=== PATIENT | male | born 1970 | race Caucasian/White ===

== ENCOUNTER → 2017-10-03 08:20 | Outpatient (CLI) | payer OTHER, SELFPAY ==
[2017-10-03 09:41] LABS: Hemoglobin A1C% w Est Avg Glu 6.5 % (4.0-6.0)
[2017-10-03 10:01] LABS: Creatinine Urine Random 170.7 mg/dL
[2017-10-03 10:06] LABS: Microalbumi Creatinin Ratio Ur 16.4 ug/mg CR (<30); Microalbumin Urine Random 2.8 mg/dL (0-1.6)
== END ==
PROVIDERS: PCP Family Medicine; Visit Provider Family Medicine
DX: E11.9 Type 2 diabetes mellitus without complications (principal)
CPT/HCPCS: 36415; 82043; 82570; 83036

== ENCOUNTER → 2018-02-27 09:20 | Outpatient (CLI) | payer OTHER, SELFPAY ==
[2018-02-27 10:25] LABS: Hemoglobin A1C% w Est Avg Glu 6.7 % (4.0-6.0)
[2018-02-27 10:54] LABS: Creatinine Urine Random 250.7 mg/dL
[2018-02-27 10:58] LABS: Microalbumi Creatinin Ratio Ur 37.8 ug/mg CR (<30); Microalbumin Urine Random 9.5 mg/dL (0-1.6)
== END ==
PROVIDERS: PCP Family Medicine; Visit Provider Family Medicine
DX: E11.9 Type 2 diabetes mellitus without complications (principal)
CPT/HCPCS: 36415; 82043; 82570; 83036

== ENCOUNTER → 2018-07-03 08:43 | Outpatient (CLI) | payer OTHER, SELFPAY ==
[2018-07-03 09:56] LABS: Add Manual Diff / Slide Review NO; Basophils Absolute Auto 100 /uL (0-100); Basophils Percent Auto 0.6 % (0-2); Eosinophils Absolute Auto 400 /uL (0-450); Eosinophils Percent Auto 3.8 % (2-4); Hematocrit 47.1 % (41-53); Hemoglobin 16.2 g/dL (13.5-17.5); Lymphocytes Absolute Auto 2400 /uL (1100-4500); Lymphocytes Percent Auto 25.8 % (25-40); Mean Corpuscular HGB Conc 34.4 % (30-36); Mean Corpuscular Hemoglobin 33.3 PG (26-34); Mean Corpuscular Volume 96.7 fL (80-100); Monocytes Absolute Auto 700 /uL (0-900); Monocytes Percent Auto 7.5 % (3-14); Neutrophils Absolute Auto 5900 /uL (1500-7000); Neutrophils Percent Auto 62.3 % (50-75); Platelet Count 265 X10^3/uL (150-400); Red Blood Cell Count 4.87 X10^6/uL (4.5-5.9); Red Cell Distribution Width 12.5 % (11.6-14.8); White Blood Cell Count 9.4 X10^3/uL (4.5-11.0)
[2018-07-03 10:15] LABS: Cholesterol 162 mg/dL (140-199); HDL Cholesterol 46 mg/dL (40-60); LDL Cholesterol Calculated 85 mg/dL (<100); Triglycerides 156 mg/dL (35-150)
[2018-07-03 10:18] LABS: Hemoglobin A1C% w Est Avg Glu 6.5 % (4.0-6.0)
[2018-07-03 10:44] LABS: Prostate Specific Antigen Scrn 0.559 ng/mL (0.1-4.0)
[2018-07-03 10:52] LABS: Creatinine Urine Random 135.1 mg/dL
[2018-07-03 10:56] LABS: Microalbumi Creatinin Ratio Ur 27.3 ug/mg CR (<30); Microalbumin Urine Random 3.7 mg/dL (0-1.6)
== END ==
PROVIDERS: PCP Family Medicine; Visit Provider Family Medicine
DX: Z00.00 Encounter for general adult medical examination without abnormal findings (principal); E11.9 Type 2 diabetes mellitus without complications; Z12.5 Encounter for screening for malignant neoplasm of prostate
CPT/HCPCS: 36415; 80061; 82043; 82570; 83036; 85025; G0103

== ENCOUNTER → 2018-11-06 08:55 | Outpatient (CLI) | payer OTHER, SELFPAY ==
[2018-11-06 10:17] LABS: Hemoglobin A1C% w Est Avg Glu 6.5 % (4.0-6.0)
[2018-11-06 10:20] LABS: Alanine Aminotransferase 112 IU/L (21-72); Albumin 4.7 g/dL (3.5-5.0); Albumin Globulin Ratio 1.6 (1.0-2.8); Alkaline Phosphatase 111 U/L (38-126); Aspartate Aminotransferase 43 IU/L (17-59); BUN Creatinine Ratio 15.6 (6-22); Bilirubin Total 0.8 mg/dL (0.2-1.3); Blood Urea Nitrogen 14 mg/dL (9-20); Calcium 9.7 mg/dL (8.4-10.2); Carbon Dioxide 29 mmol/L (22-32); Chloride 102 mmol/L (98-107); Estimated Glomerular Filt Rate > 60.0 mL/min (>60); Globulin 2.9 g/dL (1.7-4.1); Glucose 143 mg/dL (70-100); HEMOLYSIS 19 (0-50); Potassium 4.4 mmol/L (3.4-5.1); Sodium 141 mmol/L (137-145); Total Protein 7.6 g/dL (6.3-8.2)
== END ==
PROVIDERS: PCP Family Medicine; Visit Provider Student in an Organized Health Care Education/Training Program
DX: E11.9 Type 2 diabetes mellitus without complications (principal); R68.82 Decreased libido
CPT/HCPCS: 36415; 80053; 83036; 84403

== ENCOUNTER → 2019-05-07 12:20 | Outpatient (CLI) | payer OTHER, SELFPAY ==
--- NOTE | 2019-05-07 12:22 | DI.RAD.S_ITS ---
PROCEDURE: XR CHEST 2V INDICATIONS: Wheezing lower lobes, rule out pneumonia TECHNIQUE: 2 views of the chest were acquired. COMPARISON: None. FINDINGS: Surgical changes and devices: None. Lungs and pleura: No focal pulmonary consolidation is identified. However, interstitial prominence within the bilateral perihilar regions is present. No effusion or pneumothorax is identified. Mediastinum: Mediastinal contours are normal. Heart size is normal. Bones and chest wall: No suspicious bony abnormalities. Soft tissues appear unremarkable. IMPRESSION: 1. No consolidating pneumonia. 2. Perihilar interstitial prominence is nonspecific and may be within normal limits. However, pulmonary edema or interstitial pneumonia could also have this appearance. Dictated by: Mike Victor M.D. on 05/07/2019 at 11:35 Approved by: Mike Victor M.D. on 05/07/2019 at 11:36
== END ==
PROVIDERS: Family Provider Student in an Organized Health Care Education/Training Program; PCP Student in an Organized Health Care Education/Training Program; Visit Provider Nurse Practitioner
DX: R06.2 Wheezing (principal); R05 Cough
CPT/HCPCS: 71046

== ENCOUNTER → 2019-05-14 08:36 | Outpatient (CLI) | payer OTHER, SELFPAY ==
[2019-05-14 10:19] LABS: Hemoglobin A1C% w Est Avg Glu 7.6 % (4.0-6.0)
== END ==
PROVIDERS: Family Provider Student in an Organized Health Care Education/Training Program; PCP Student in an Organized Health Care Education/Training Program; Visit Provider Student in an Organized Health Care Education/Training Program
DX: E11.9 Type 2 diabetes mellitus without complications (principal)
CPT/HCPCS: 36415; 83036

== ENCOUNTER → 2019-08-20 08:14 | Outpatient (CLI) | payer OTHER, SELFPAY ==
[2019-08-20 09:04] LABS: Cholesterol 143 mg/dL (140-199); HDL Cholesterol 38 mg/dL (40-60); LDL Cholesterol Calculated 78 mg/dL (<100); Triglycerides 133 mg/dL (35-150)
[2019-08-20 09:06] LABS: Hemoglobin A1C% w Est Avg Glu 7.1 % (4.0-6.0)
[2019-08-20 09:17] LABS: Creatinine Urine Random 93.2 mg/dL
[2019-08-20 09:22] LABS: Microalbumi Creatinin Ratio Ur 27.8 ug/mg CR (<30); Microalbumin Urine Random 2.6 mg/dL (0-1.6)
== END ==
PROVIDERS: Family Provider Student in an Organized Health Care Education/Training Program; PCP Student in an Organized Health Care Education/Training Program; Referring Provider Student in an Organized Health Care Education/Training Program; Visit Provider Student in an Organized Health Care Education/Training Program
DX: E11.9 Type 2 diabetes mellitus without complications (principal)
CPT/HCPCS: 36415; 80061; 82043; 82570; 83036

== ENCOUNTER → 2019-12-17 07:58 | Outpatient (CLI) | payer OTHER, SELFPAY ==
[2019-12-17 09:40] LABS: Hemoglobin A1C% w Est Avg Glu 6.7 % (4.0-6.0)
== END ==
PROVIDERS: Family Provider Student in an Organized Health Care Education/Training Program; PCP Student in an Organized Health Care Education/Training Program; Referring Provider Student in an Organized Health Care Education/Training Program; Visit Provider Student in an Organized Health Care Education/Training Program
DX: E11.9 Type 2 diabetes mellitus without complications (principal)
CPT/HCPCS: 36415; 83036

== ENCOUNTER → 2020-01-21 09:08 | Outpatient (CLI) | payer OTHER, SELFPAY ==
--- NOTE | 2020-01-21 | DI.RAD.S_ITS ---
PROCEDURE: XR KNEE RT 3V INDICATIONS: RT KNEE PAIN TECHNIQUE: 3 views of the knee were acquired. COMPARISON: None. FINDINGS: Bones: No fractures or dislocations. No suspicious bony lesions. Osteophyte formation can be seen along the margins of the patella. The patellofemoral joint space and the femorotibial joint spaces appear well preserved. Soft tissues: No significant joint effusion. No suspicious soft tissue calcifications. IMPRESSION: Normal plain films for age. If it would be helpful for clinical management decision making, please consider a dedicated knee MRI for further evaluation (assuming that there is no contraindication to MRI). Dictated by: Richie Adair M.D. on 01/21/2020 at 16:59 Approved by: Richie Adair M.D. on 01/21/2020 at 17:00
== END ==
PROVIDERS: Family Provider Student in an Organized Health Care Education/Training Program; PCP Student in an Organized Health Care Education/Training Program; Referring Provider Student in an Organized Health Care Education/Training Program; Visit Provider Student in an Organized Health Care Education/Training Program
DX: M25.561 Pain in right knee (principal)
CPT/HCPCS: 73562

== ENCOUNTER → 2020-05-26 08:15 | Outpatient (CLI) | payer OTHER, SELFPAY ==
[2020-05-26 09:06] LABS: BUN Creatinine Ratio 15.4 (6-22); Blood Urea Nitrogen 12 mg/dL (9-20); Calcium 9.8 mg/dL (8.4-10.2); Carbon Dioxide 32 mmol/L (22-32); Chloride 101 mmol/L (98-107); Estimated Glomerular Filt Rate > 60.0 mL/min (>60); Glucose 152 mg/dL (70-100); HEMOLYSIS < 15 (0-50); Potassium 4.2 mmol/L (3.4-5.1); Sodium 137 mmol/L (137-145)
[2020-05-26 09:08] LABS: Hemoglobin A1C% w Est Avg Glu 6.5 % (4.0-6.0)
== END ==
PROVIDERS: Family Provider Student in an Organized Health Care Education/Training Program; PCP Student in an Organized Health Care Education/Training Program; Referring Provider Student in an Organized Health Care Education/Training Program; Visit Provider Student in an Organized Health Care Education/Training Program
DX: E11.9 Type 2 diabetes mellitus without complications (principal)
CPT/HCPCS: 36415; 80048; 83036

== ENCOUNTER → 2020-09-15 08:31 | Outpatient (CLI) | payer OTHER, SELFPAY ==
[2020-09-15 09:30] LABS: Hemoglobin A1C% w Est Avg Glu 6.4 % (4.0-6.0)
[2020-09-15 11:57] LABS: Creatinine Urine Random 93.2 mg/dL
[2020-09-15 12:01] LABS: Microalbumi Creatinin Ratio Ur 21.4 ug/mg CR (<30)
[2020-09-16 09:23] LABS: Cholesterol 133 mg/dL (140-199); HDL Cholesterol 43 mg/dL (40-60); LDL Cholesterol Calculated 72 mg/dL (<100); Triglycerides 91 mg/dL (35-150)
== END ==
PROVIDERS: Family Provider Student in an Organized Health Care Education/Training Program; PCP Student in an Organized Health Care Education/Training Program; Referring Provider Student in an Organized Health Care Education/Training Program; Visit Provider Student in an Organized Health Care Education/Training Program
DX: E11.9 Type 2 diabetes mellitus without complications (principal); E78.5 Hyperlipidemia, unspecified
CPT/HCPCS: 36415; 80061; 82043; 82570; 83036

== ENCOUNTER → 2020-12-08 08:05 | Outpatient (CLI) | payer OTHER, SELFPAY ==
[2020-12-08 09:09] LABS: Add Manual Diff / Slide Review NO; Basophils Absolute Auto 0 /uL (0-100); Basophils Percent Auto 0.3 % (0-2); Eosinophils Absolute Auto 200 /uL (0-450); Eosinophils Percent Auto 1.4 % (2-4); Hematocrit 45.4 % (41-53); Hemoglobin 15.6 g/dL (13.5-17.5); Lymphocytes Absolute Auto 1700 /uL (1100-4500); Lymphocytes Percent Auto 14.2 % (25-40); Mean Corpuscular HGB Conc 34.4 % (30-36); Mean Corpuscular Hemoglobin 33.9 PG (26-34); Mean Corpuscular Volume 98.4 fL (80-100); Monocytes Absolute Auto 900 /uL (0-900); Monocytes Percent Auto 7.6 % (3-14); Neutrophils Absolute Auto 9000 /uL (1500-7000); Neutrophils Percent Auto 76.5 % (50-75); Platelet Count 254 X10^3/uL (150-400); Red Blood Cell Count 4.61 X10^6/uL (4.5-5.9); White Blood Cell Count 11.8 X10^3/uL (4.5-11.0)
[2020-12-08 09:37] LABS: Alanine Aminotransferase 114 IU/L (<50); Albumin 4.4 g/dL (3.5-5.0); Albumin Globulin Ratio 1.5 (1.0-2.8); Alkaline Phosphatase 107 U/L (38-126); Aspartate Aminotransferase 64 IU/L (17-59); Bilirubin Total 0.6 mg/dL (0.2-1.3); Blood Urea Nitrogen 10 mg/dL (9-20); Calcium 9.9 mg/dL (8.4-10.2); Carbon Dioxide 29 mmol/L (22-32); Chloride 102 mmol/L (98-107); Estimated Glomerular Filt Rate > 60.0 mL/min (>60); Glucose 137 mg/dL (70-100); HEMOLYSIS < 15 (0-50); Potassium 3.9 mmol/L (3.4-5.1); Sodium 138 mmol/L (137-145); Total Protein 7.4 g/dL (6.3-8.2)
[2020-12-08 10:07] LABS: Prostate Specific Antigen Scrn 0.648 ng/mL (0.1-4.0); Thyroid Stimulating Hormone 0.971 uIU/mL (0.47-4.68)
== END ==
PROVIDERS: Family Provider Student in an Organized Health Care Education/Training Program; PCP Student in an Organized Health Care Education/Training Program; Referring Provider Student in an Organized Health Care Education/Training Program; Visit Provider Student in an Organized Health Care Education/Training Program
DX: E11.9 Type 2 diabetes mellitus without complications (principal)
CPT/HCPCS: 36415; 80053; 83036; 84443; 85025; G0103

== ENCOUNTER → 2020-12-31 10:29 | Outpatient (CLI) | payer OTHER, SELFPAY ==
[2020-12-31 12:47] LABS: COVID19 -Nasal RAPID Negative (Negative)
== END ==
PROVIDERS: Family Provider Student in an Organized Health Care Education/Training Program; PCP Student in an Organized Health Care Education/Training Program; Visit Provider Nurse Practitioner Family
DX: Z01.812 Encounter for preprocedural laboratory examination (principal); Z20.822 Contact with and (suspected) exposure to COVID-19
CPT/HCPCS: 87635

== ENCOUNTER → 2021-01-01 09:10 | Outpatient (CLI) | payer OTHER, SELFPAY ==
--- NOTE | 2021-01-01 | DI.ECHO.S_ITS ---
Version: 1 Study ID: [id number] [place] [address] Name: GILL PAVON Study Date: 01/01/2021, 9: 24 AM : 1970 BP: 142 / 98 mmHg Gender: Male Height: 70 in Age: 50 Years Weight: 240 lb BSA: 2.26 mA? Ordering: JESSENIA HERNANDEZ Referring: JESSENIA HERNANDEZ Clinician: Cally Talbot Reason For Study: HYPERTENSION History: Summary Statements Normal sinus rhythm. Normal LV size and wall thickness; mildly reduced LV systolic function. EF is 40-45%. Normal chamber sizes. No significant valvular abnormalities. No prior study available for comparison. Procedure: A two-dimensional transthoracic echocardiogram with color flow and Doppler was performed. The study quality was technically adequate. There is no prior echocardiogram noted for this patient. The patient was in sinus rhythm with heart rates between 92-110 bpm during the exam. Left Ventricle: The left ventricle is normal in size and wall thickness. The estimated left ventricular end diastolic volume is 111 ml. The ejection fraction is estimated to be 40-45%. Right Ventricle: The right ventricle is normal in size and function. Atria: The left atrial size is normal. Right atrial size is normal. There is no Doppler evidence for an interatrial shunt. Mitral Valve: The mitral valve is normal in structure and function. There is trace mitral regurgitation. Aortic Valve: The aortic valve is trileaflet. The aortic valve opens well. There is no aortic valve stenosis. No aortic regurgitation is present. Tricuspid Valve: The tricuspid valve is normal in structure and function. There is trace tricuspid regurgitation. Pulmonary artery pressures cannot be estimated because of the lack of a measurable TR jet velocity but the IVC suggests a CVP of around 3 mmHg. Pulmonic Valve: The pulmonic valve leaflets are thin and pliable; valve motion is normal. There is no pulmonic valvular regurgitation. Great Vessels: The aortic root is normal size. The dimensions of the ascending aorta are normal. The IVC is of normal diameter and collapses greater than 50% with a sniff. This suggests a low right atrial pressure of 3 mm Hg. Pericardium/ Pleura: There is no pericardial effusion. There is no pleural effusion. 2D and M-Mode Measurements and Calculations LVIDd: 5.5 cm LVOT diam: 2.19 cm LVIDs: 4.4 cm Ao root diam: 3.6 cm IVSd: 1.02 cm asc Aorta Diam: 2.9 cm LVPWd: 0.76 cm Ao Arch Diam (Prox Trans): 2.9 cm LV servin. diameter/BSA (cm/m^2): 2.44 LV sys. diameter/BSA (cm/m^2): 1.97 EPSS: 1.77 cm RVD1 (basal): 3.3 cm IVC diam: 0.81 cm TAPSE: 1.82 cm LA A4 area: 20.8 welder gas? RA area: 14.0 welder gas? LA A2 area: 16.9 welder gas? RA long axis: 4.9 cm LA length (vol): 5.7 cm RA vol: 34.4 ml LA vol: 52.4 ml RA : 15.2 ml/mA? LA vol index: 23.3 ml/mA? Doppler Measurements and Calculations Ao V2 max: 125.6 cm/sec LVOT Max Franklin: 78.9 cm/sec Ao V2 mean: 86.1 cm/sec LV V1 max P.49 mmHg Ao V2 VTI: 20.5 cm LV V1 VTI: 13.1 cm Ao max P.3 mmHg Ao mean P.5 mmHg ANASTASIA(I,D): 2.42 welder gas? ANASTASIA(V,D): 2.37 welder gas? ANASTASIA indexed to BSA (cm^2/m^2): 1.07 sev ratio: 0.64 MV E max franklin: 73.2 cm/sec MV dec time: 0.18 sec MV A max franklin: 86.4 cm/sec MV E/A: 0.85 Med Peak E' Franklin: 6.3 cm/sec Lat Peak E' Franklin: 9.2 cm/sec E/e' average: 9.8 PA V2 max: 97.3 cm/sec PA mean P.08 mmHg Electronically signed by: Jeanne Godwin M.D. 01/02/2021, 1: 31 AM
--- NOTE | 2021-01-01 15:35 | DI.NM.S_ITS ---
PROCEDURE: NM EXERCISE TREADMILL NON NUC COMPARISON: None. INDICATIONS: PRIMARY HYPERTENSION FINDINGS: Resting ECG sinus rhythm, nonspecific IVCD, inferior and lateral horizontal to downsloping ST abnormalities. Patrice protocol 7 minutes, 2 seconds, 10.1 METS, JUJU +29%. Achieved 98% peak predicted heart rate. Baseline hypertension 150/100. Max BP 182/90. Duran Treadmill Score -3. Stress ECG sinus tachycardia, occasional PVCs, worsening of the baseline inferior and lateral downsloping ST abnormality. IMPRESSION: 1. Overall equivocal test. 2. Abnormal resting ECG, exacerbated by exercise. 3. Intermediate risk according to Duran Treadmill Score. 4. Baseline hypertension. 5. If clinically indicated, consider repeat stress testing combined with imaging modality, recommend echocardiography in this age group. Dictated by: Gabriela Singletary D.O. on 01/02/2021 at 17:11 Approved by: Gabriela Singletayr M.D. on 01/02/2021 at 17:25
== END ==
PROVIDERS: Family Provider Student in an Organized Health Care Education/Training Program; PCP Student in an Organized Health Care Education/Training Program; Referring Provider Student in an Organized Health Care Education/Training Program; Visit Provider Student in an Organized Health Care Education/Training Program
DX: R94.31 Abnormal electrocardiogram [ECG] [EKG] (principal); I10 Essential (primary) hypertension; R00.0 Tachycardia, unspecified
CPT/HCPCS: 93017; 93306

== ENCOUNTER → 2021-02-02 10:16 | Outpatient (CLI) | payer OTHER, SELFPAY ==
[2021-02-02 10:59] LABS: Add Manual Diff / Slide Review NO; Basophils Absolute Auto 0 /uL (0-100); Basophils Percent Auto 0.5 % (0-2); Eosinophils Absolute Auto 200 /uL (0-450); Eosinophils Percent Auto 1.6 % (2-4); Hematocrit 46.5 % (41-53); Hemoglobin 16.3 g/dL (13.5-17.5); Lymphocytes Absolute Auto 2000 /uL (1100-4500); Lymphocytes Percent Auto 19.9 % (25-40); Mean Corpuscular HGB Conc 35.1 % (30-36); Mean Corpuscular Hemoglobin 33.9 PG (26-34); Mean Corpuscular Volume 96.7 fL (80-100); Monocytes Absolute Auto 1000 /uL (0-900); Monocytes Percent Auto 9.6 % (3-14); Neutrophils Absolute Auto 7000 /uL (1500-7000); Neutrophils Percent Auto 68.4 % (50-75); Platelet Count 257 X10^3/uL (150-400); Red Blood Cell Count 4.81 X10^6/uL (4.5-5.9); White Blood Cell Count 10.3 X10^3/uL (4.5-11.0)
[2021-02-02 11:17] LABS: Cholesterol 156 mg/dL (140-199); HDL Cholesterol 48 mg/dL (40-60); LDL Cholesterol Calculated 88 mg/dL (<100); Triglycerides 98 mg/dL (35-150)
[2021-02-02 11:48] LABS: Thyroid Stimulating Hormone 0.791 uIU/mL (0.47-4.68)
[2021-02-03 07:01] LABS: BUN Creatinine Ratio 11.8 (6-22); Blood Urea Nitrogen 10 mg/dL (9-20); Calcium 10.1 mg/dL (8.4-10.2); Carbon Dioxide 32 mmol/L (22-32); Chloride 98 mmol/L (98-107); Estimated Glomerular Filt Rate > 60.0 mL/min (>60); Glucose 136 mg/dL (70-100); HEMOLYSIS 15 (0-50); Sodium 139 mmol/L (137-145)
== END ==
PROVIDERS: Family Provider Student in an Organized Health Care Education/Training Program; PCP Student in an Organized Health Care Education/Training Program; Referring Provider Internal Medicine; Visit Provider Internal Medicine
DX: R00.0 Tachycardia, unspecified (principal)
CPT/HCPCS: 36415; 80048; 80061; 84443; 85025

== ENCOUNTER → 2021-02-27 14:55 | Outpatient (CLI) | payer OTHER, SELFPAY ==
[2021-02-27 16:35] LABS: COVID19 -Nasal RAPID Negative (Negative)
== END ==
PROVIDERS: Family Provider Student in an Organized Health Care Education/Training Program; PCP Student in an Organized Health Care Education/Training Program; Visit Provider Nurse Practitioner Family
DX: Z20.822 Contact with and (suspected) exposure to COVID-19 (principal)
CPT/HCPCS: 87635

== ENCOUNTER 2021-03-01 13:24 | Day surgery (SDC) | payer OTHER, SELFPAY ==
--- NOTE | 2021-03-01 12:26 | PM.HP.1 ---
History of Present Illness History of Present Illness Date Patient Seen: 03/01/21 Chief complaint: SCREENING COLONOSCOPY Narrative: 50 year old male comes in today for consideration of a screening colonoscopy. There have been no lower GI symptoms suggesting disease such as change in bowel habits, bleeding, abdominal pain or anemia. There's been no family history of colon cancer or colon polyps. Overall health issues have been stable, including no major cardiac events for at least 6 weeks. PCP: Dr. Way Past Medical History: Decreased sex drive FATIGUE PAIN, FOOT, RIGHT HYPERLIPIDEMIA HYPERTENSION DM, TYPE 2 DEGENERATIVE JOINT DISEASE Allergy to seafood OBESITY Past Surgical History: Tonsillectomy 1974 Hand reconstruction, right 1987 Rt rotator cuff repair 03/2021 Family History: Family Hx Diabetes mom Hypertension mom, Thyroid Disease mom Social History: Marital Status: Adriane, 12/14/68 Children: none Occupation: instructional technology director Household Members: 2 Patient History Family & Social History Tobacco & Substance use: Smoking Status Former smoker Meds Home Medications and Allergies Home Medications Medication Instructions Recorded Confirmed Type albuterol sulfate 90 mcg/actuation 2 puff INHALATION Q4-6H PRN #8 gram 05/07/19 05/07/19 Rx aerosol inhaler azithromycin 250 mg tablet See Rx Instructions PO .COMPLEX #6 05/07/19 05/07/19 Rx tab Allergies Allergy/AdvReac Type Severity Reaction Status Date / Time No Known Drug Allergies Allergy Verified 05/07/19 10:49 Review of Systems Review of Systems Narrative: All remaining ROS were reviewed and negative except as addressed. Exam Narrative Exam Narrative: GENERAL: Alert and oriented, appearing stated age and in no acute distress. HEENT: Head normocephalic/atraumatic. Extraocular movements intact. LUNGS: Clear to ausculation bilaterally, no wheezes, rhonchi or rales. CV: Normal S1 and S2 with regular rate and rhythm, no audible murmurs, rubs or gallops. ABDOMEN: Soft, non-tender, non-distended, no organomegaly. Positive bowel sounds. EXTREMITIES: No clubbing, cyanosis, or edema. NEURO: Cranial nerves II through XII grossly intact, no focal deficits. PSYCH: Alert and oriented x 3. SKIN: No concerning lesions. Assessment & Plan Assessment & Plan narrative: 1. Screening for colon cancer Plan for colonoscopy. The nature and character of the procedure as well as anticipated results were discussed. The possibility of not completing the procedure was also discussed. Possible complications including aspiration pneumonia, bleeding, perforation and reaction to medications either for sedation or preparation and missed lesions were discussed. Questions were answered and proceeding to the colonoscopy was elected. Informed consent signed. I sincerely appreciate the referral allowing me to participate in this patient's care. Please contact me with any questions or concerns.
--- NOTE | 2021-03-01 12:29 | PM.OP.COLON ---
Operative Date/Time/Diagnoses Date of procedure: 03/01/21 Procedure Notes SCOAP/Timeout: 2:32 p.m. Procedure in detail: ENDOSCOPIST: Winifred Way MD Sedation RN: Shania Yepez RN Sedation start time: 2:32 p.m. Sedation end time: 2:55 p.m. PROCEDURE: Colonoscopy INDICATIONS: 1. Screening for colon cancer MEDICATION: Levsin 0.125 mg sublingual, incremental doses of Versed and fentanyl until appropriate level sedation achieved. ASA CLASS: 2 CECAL WITHDRAWAL TIME: 14 minutes COMPLICATIONS: None. EXTENT OF PROCEDURE: Cecum. QUALITY OF PREP: Good with portions of liquid stool. PROCEDURE: Prior to insertion of the colonoscope, a digital rectal examination was accomplished with circumferential palpation of the distal rectal mucosa without significant findings being noted. The high-definition colonoscope was passed into the rectum in the usual fashion and advanced over to the cecum without difficulty. The ileocecal valve, appendiceal stoma, and medial wall all could be inspected and no abnormalities were seen. ASCENDING COLON: As the colonoscope was withdrawn, care was taken to expose and inspect the haustral folds and no abnormalities were seen. HEPATIC FLEXURE: Normal, no polyps, diverticula or other abnormalities. TRANSVERSE COLON: Normal, no polyps, diverticula or other abnormalities. DESCENDING COLON: Normal, no polyps, diverticula or other abnormalities. SIGMOID COLON: Normal, no polyps, diverticula or other abnormalities. RECTUM: Dilated veins, otherwise normal. J maneuver was produced. There was no significant perianal disease. The J maneuver was broken. The remainder of the rectum was inspected and there was no external hemorrhoid disease. The scope was withdrawn. IMPRESSION: 1. Normal colonoscopy PLAN: 1. Repeat colonoscopy in 10 years. The possibility of a missed lesion including a malignancy has been discussed with the patient previously. Potential alarm symptoms have been discussed and should be reported immediately.
[2021-03-01] MEDS: HYOSCYAMINE 0.125 MG TABLET PO (13:39)
[2021-03-01 13:45] VITALS: BP 142/85; PULSE 118; RESP 18; TEMP 37.2; O2SAT 98; BMI 35.4
[2021-03-01] MEDS: LACTATED RINGERS 1,000 ML 200 ML IV (13:52)
[2021-03-01] MEDS: MIDAZOLAM 5 MG/5 ML VIAL IV (14:57)
[2021-03-01] MEDS: fentaNYL 250 MCG/5 ML INJ IV (14:58)
[2021-03-01 15:00] VITALS: BP 105/74; PULSE 94; RESP 14; TEMP 36.8; O2SAT 93
[2021-03-01 15:05] VITALS: BP 125/71; PULSE 99; RESP 16; O2SAT 95
[2021-03-01 15:10] VITALS: BP 135/77; PULSE 90; RESP 20; O2SAT 97
[2021-03-01 15:15] VITALS: BP 134/87; PULSE 100; RESP 14; O2SAT 97
[2021-03-01 15:20] VITALS: BP 118/76; PULSE 98; RESP 18; TEMP 37; O2SAT 98
--- OUTSIDE RECORDS SUMMARY | 2021-07-12 07:41 | XMS_ITS | Summary of Care ---
:1970 Author Organization [facility] Address [address] [place] [address] Care Team Providers Name Role Phone Paty Way MD Primary Care Provider Reason for Referral Hospital - Outpatient (Routine) - Authorized Specialty Diagnoses / Procedures Referred By Contact Refer red To Contact Diagnoses Coronary artery disease due to lipid rich plaque Cardiomyopathy, ischemic Avinash Cobb MD [address] [place] [address] [place], [place] [address] Referral ID Status Reason Start Date Expiration Date Visits V isits Requested Authorized [id number] Authorized 07/09/2021 07/09/2022 25 25 [facility] Reason for Visit Auth/Cert Specialty Diagnoses / Procedures Referred By Contact Refer red To Contact Diagnoses Chest pain due to coronary artery disease ([facility]) Procedures OUTPATIENT IN A BED Referral ID Status Reason Start Date Expiration Date Visits Requ ested Visits Authorized [id number] 1 1 Encounter Details Date Type Department Care Team Description 04/24/2021 - [facility] [address] [place] [address] [address] [place], [place] [id number] Cardiomyopathy, ischemic (Primary Dx); 04/25/2021 Hospital Progressive Avinash Cobb MD [facility] [address] [address] [place], [place] [id number] Coronary artery disease due to lipid noa h plaque and Critical Care [facility] [address] [facility] [place] [address] Allergies Active Allergy Reactions Severity Noted Date Comments Bee Venom Protein (Honey Bee) Anaphylaxis High 01/23/2021 Shellfish Derived Anaphylaxis High 01/23/2021 documented as of this encounter (statuses as of 07/11/2021) Medications Medication Sig Dispensed Refills Start Date End Date Status amLODIPine Take 5 mg by 0 12/15/2020 Activ e (NORVASC) 5 mg mouth daily tablet gabapentin Take 2 0 11/30/2020 Active (NEURONTIN) 300 mg capsules (600 capsule mg) by mouth every morning AND 2 capsules (600 mg) at bedtime. Can increase to three times daily if needed losartan-hydrochlo Take 1 tablet 0 11/05/2020 Active rothiazide by mouth daily (HYZAAR) 100-25 mg per tablet metFORMIN XR Take 1,000 mg 0 11/05/2020 Ac tive (GLUCOPHAGE-XR) by mouth 2 500 mg 24 hr (two) times a tablet day aspirin 81 mg EC Take 81 mg by 0 Active tablet mouth daily atorvastatin Take 4 tablets 120 tablet 11 02/11/2021 05/29/2021 Discontinued (LIPITOR) 20 mg (80 mg total) tablet by mouth daily clopidogreL Take 1 tablet 90 tablet 0 02/12/2021 05/08/2021 Di scontinued (PLAVIX) 75 mg (75 mg total) tablet by mouth daily metoprolol Take 0.5 180 tablet 3 02/19/2021 05/29/2021 Discon tinued tartrate tablets (12.5 (LOPRESSOR) 25 mg mg total) by tablet mouth 2 (two) times a day documented as of this encounter (statuses as of 07/11/2021) Active Problems Problem Noted Date Coronary artery disease due to lipid rich plaque 02/19 Cardiomyopathy, ischemic 02/19/2021 Hyperlipidemia Hypertension S/P angioplasty with stent Overview: MORGAN x1 to LAD on 04/24/2021 documented as of this encounter (statuses as of 07/11/2021) Social History Tobacco Use Types Packs/Day Years Used Date Former Smoker 0.5 1989 - 1998 Smokeless Tobacco: Never Used Alcohol Use Standard Drinks/Week Comments Yes 2 (1 standard drink = 0.6 oz pure alcoho l) 1-2 beers a day Alcohol Habits Answer Date Recorded How often do you have a drink containing alcohol? Not asked How many drinks containing alcohol do you have on a Not aske d typical day when you are drinking? How often do you have six or more drinks on one Not asked occasion? Comment: 1-2 beers a day 02/11/2021 Sex Assigned at Date Recorded Not on file Job Start Date Occupation Industry Not on file Not on file Not on file COVID-19 Exposure Response Date Recorded In the last month, have you been in contact with No / Unsure 04/24/2021 4:18 PM PST someone who was confirmed or suspected to have Coronavirus / COVID-19? documented as of this encounter Last Filed Vital Signs Vital Sign Reading Time Taken Comments Blood Pressure 145/91 04/25/2021 8:43 AM PST Pulse 80 04/25/2021 8:43 AM PST Temperature 36.9 ??C (98.4 ??F) 04/25/2021 8:43 AM PST Respiratory Rate 18 04/25/2021 8:43 AM PST Oxygen Saturation 96% 04/25/2021 8:43 AM PST Inhaled Oxygen Concentration - - Weight 109 kg (240 lb) 04/24/2021 3:54 PM PST Height 152.4 cm (5') 04/24/2021 3:54 PM PST Body Mass Index 46.87 04/24/2021 3:54 PM PST documented in this encounter Discharge Summaries JENNIFER Almaraz - 04/25/2021 8:54 AM PST Cardiology Discharge Summary BRIEF OVERVIEW Pt. Name/Age/: Jonathan Huddleston 50 y.o. 1970 Date of Admission: 04/24/2021 Date of Discharge: 04/25/2021 PCP: Winifred Way Discharging Provider: JENNIFER Almaraz Primary Discharge Diagnosis CAD s/p MORGAN x1 to LAD, with unsuccessful recanalization of the RCA ASSISTANT UNIT FORESTER. Secondary Discharge Diagnosis Active Ambulatory Problems Diagnosis Date Noted ??? Coronary artery disease due to lipid rich plaque 02/19/2021 ??? Cardiomyopathy, ischemic 02/19/2021 Resolved Ambulatory Problems Diagnosis Date Noted ??? No Resolved Ambulatory Problems Past Medical History: Diagnosis Date ??? Coronary artery disease ??? Diabetes mellitus ([facility]) ??? Hyperlipidemia ??? Hypertension Active Issues Requiring Follow-up None Outpatient Follow-Up Follow up with PCP in 1 week Follow up with cardiology in 3-4 weeks. Test Results Pending at Discharge None DETAILS OF HOSPITAL STAY Presenting Problem/History of Present Illness Jonathan Huddleston is a 50 y.o. male with a PMH of CAD, hypertension, hyperlipidemia, type 2 diabetes. He is hospital day 1 s/p PCI with MORGAN x1 to LAD, and unsuccessful recanalization of RCA ASSISTANT UNIT FORESTER. Hospital Course Mr Huddleston was admitted through the [facility] on 04/24/2021 and taken to the/ [facility] where the patient underwent PCI including MORGAN of the LAD, and unsuccessful recanalization of RCA ASSISTANT UNIT FORESTER. Post-procedure the patient was recovered in [facility] then transferred to PCU for overnight observation and telemetry m onitoring. He did well overnight and this morning is clinically stable and ambulatory w/o difficulty. Today he is sitting in bed, comfortable . He is able to ambulate without chest discomfort or pronounced dyspnea on exertion. He denies CP, palpitations, pre- syncope/syncope, orthopnea/PND, N/V/D. Overnight Telemetry: Sinus rhythm, rate 70-80s. No events or alarms Operative Procedures Performed SI Left heart Catheterization Treatments: cardiac meds: DAPT with Plavix and ASA Consults: None Pertinent Test Results: ANGIOGRAPHIC FINDINGS per Dr. Cobb Unsuccessful recanalization of the RCA ASSISTANT UNIT FORESTER. Successful stenting of the LAD. Recommend dual antiplatelet therapy for 6 months post procedure. EKG Sinus rhythm, rate 75bpm, IVCD Lab Results Component Value Date GLUCOSE 178 (H) 04/24/2021 CALCIUM 9.2 04/24/2021 NA 136 04/24/2021 K 3.5 04/24/2021 CO2 25 04/24/2021 CL 99 04/24/2021 BUN 18.0 04/24/2021 CREATININE 0.76 04/24/2021 Lab Results Component Value Date WBC 9.2 04/24/2021 HGB 15.5 04/24/2021 HCT 44.1 04/24/2021 MCV 96 04/24/2021 PLT 230 04/24/2021 @LASTLABX(A1C:2,ldl:2)@ No results found for: CKTOTAL, CKMB, CKMBINDEX, TROPONIN No results found for: BNP Medications Reconciled upon Discharge are: Medication List CONTINUE taking these medications amLODIPine 5 mg tablet Commonly known as: NORVASC aspirin 81 mg EC tablet atorvastatin 20 mg tablet Commonly known as: LIPITOR Take 4 tablets (80 mg total) by mouth daily clopidogreL 75 mg tablet Commonly known as: PLAVIX Take 1 tablet (75 mg total) by mouth daily gabapentin 300 mg capsule Commonly known as: NEURONTIN losartan-hydrochlorothiazide 100-25 mg per tablet Commonly known as: HYZAAR metFORMIN XR 500 mg 24 hr tablet Commonly known as: GLUCOPHAGE-XR metoprolol tartrate 25 mg tablet Commonly known as: LOPRESSOR Take 0.5 tablets (12.5 mg total) by mouth 2 (two) times a day Allergies: Allergies Allergen Reactions ??? Bee Venom Protein (Honey Bee) Anaphylaxis ??? Shellfish Derived Anaphylaxis Physical Exam at Discharge Discharge Condition: Stable Wt Readings from Last 1 Encounters: 04/24/21 109 kg Temp Readings from Last 1 Encounters: 04/25/21 36.9 ??C (98.4 ??F) (Oral) BP Readings from Last 1 Encounters: 04/25/21 (!) 145/91 Pulse Readings from Last 1 Encounters: 04/25/21 80 Resp Readings from Last 1 Encounters: 04/25/21 18 Patient is well-appearing, NAD, speaking in full sentences, observed by RN ambulating without difficulty or work of breath. Heart is RRR, no murmur, rubs or gallops. Lungs CTA. Right and left femoral access sites are closed, clean and dry. There is mild drainage on the right femoral gauze dressing. The patient requested to leave the right femoral dressing intact at this time. There is no active bleeding or drainage noted at the time of this exam. The surrounding area is warm, soft to the touch, and nontender to palpation. There is minimal bruising. No s/sx of infection. No bruit on auscultation. Peripheral pulses intact. The patient is hemodynamically stable. Discharge Disposition Home The patient was discharged home in good condition with follow-up appointment at the cardiology office in 3-4 weeks. He was instructed not to lift, push, or pull more than 10 pounds for 7 days. Patient was also instructed not to sit or soak in pool, hot tub, or bathtub, for 7 days. He is to continue taking Plavix and ASA daily. We discussed DAPT and it was explained that he needs to remain on Plavix and ASA to prevent stent occlusion. Patient is agreeable to cardiac rehab with referral to be placed at cardiology follow up appointment. He was instructed to follow a heart healthy diet, and take medications as prescribed. He was advised to contact us if he experiences any chest pain, worsening SOB, or if he has any concerns about the surgical access site. Code Status at Discharge: Full ELECTRONICALLY SIGNED by Janelle Andres DNP, ARNP 04/25/2021 11:33 AM documented in this encounter Discharge Instructions AppointmentsKimberley Irizarry CNA - 04/25/2021 11:01 AM PST Appointment with Dr Kenny Way ph#[phone] on May 02 at 0945 am Additional InstructionsGavi Andersen RN - 04/24/2021 Rest today, do not drink alcohol, take sedatives to help with sleep or make important decisions for 24hrs.GROIN CARE: Rest today, DO NOT DRIVE, no alcohol and do not make important decisions for the next 24 hours. Avoid pushing, pulling or lifting more than 10 pounds for the next 5-7 days. No vigorous activity for (48hours) 2 days. Limit use of stairs for 48 hours. If bleeding develops, hold pressure for 15 minutes with a clean cloth or gauze. After 15 minutes orif you are unable to control the bleeding, saturating bandage, call 911. You may shower tomorrow. Dressing may be removed then gently wash site with soap and water, pat dry with a clean towel. Replace with bandaid until well healed. Do not put creams, lotions or powders on site. Do not soak or swim (hot tubs, pools, bathtub) until site is completely healed, about 1 week. AttachmentsThe following attachments cannot be sent through Care Everywhere. Heart Catheterization (Discharge Care) (Armenian)documented in this encounter H&P Notes Avinash Cobb MD - 04/24/2021 10:00 AM PST Images from the original note were not included. Preprocedure History and Physical Indication for procedure: The encounter diagnosis was Coronary artery disease due to lipid rich plaque. Relevant past medical/surgical history: Past Surgical History: Procedure Laterality Date ??? CORONARY ANGIOPLASTY 2020 ??? FINGER SURGERY Right 1986 pinky ??? SHOULDER SURGERY Right ??? TONSILLECTOMY AND ADENOIDECTOMY 1973 . Past Medical History: Diagnosis Date ??? Coronary artery disease ??? Diabetes mellitus ([facility]) ??? Hyperlipidemia ??? Hypertension Current medications: Current Outpatient Medications: ??? aspirin 81 mg EC tablet, Take 81 mg by mouth daily, Disp: , Rfl: ??? amLODIPine (NORVASC) 5 mg tablet, Take 5 mg by mouth daily, Disp: , Rfl: ??? atorvastatin (LIPITOR) 20 mg tablet, Take 4 tablets (80 mg total) by mouth daily, Disp: 120 tablet, Rfl: 11 ??? clopidogreL (PLAVIX) 75 mg tablet, Take 1 tablet (75 mg total) by mouth daily, Disp: 90 tablet,Rfl: 0 ??? gabapentin (NEURONTIN) 300 mg capsule, Take 2 capsules (600 mg) by mouth every morning AND 2 capsules (600 mg) at bedtime. Can increase to three times daily if needed, Disp: , Rfl: ??? losartan-hydrochlorothiazide (HYZAAR) 100-25 mg per tablet, Take 1 tablet by mouth daily, Disp:, Rfl: ??? metFORMIN XR (GLUCOPHAGE-XR) 500 mg 24 hr tablet, Take 1,000 mg by mouth 2 (two) times a day, Disp: , Rfl: ??? metoprolol tartrate (LOPRESSOR) 25 mg tablet, Take 0.5 tablets (12.5 mg total) by mouth 2 (two)times a day, Disp: 180 tablet, Rfl: 3 Current Facility-Administered Medications: ??? fentaNYL (SUBLIMAZE) 50 mcg/mL injection - ADS Override Pull, , , , ??? heparin (porcine) 1,000 unit/mL injection - ADS Override Pull, , , , ??? midazolam (VERSED) 1 mg/mL injection - ADS Override Pull, , , , ??? amiodarone (CORDARONE) 50 mg/mL injection - ADS Override Pull, , , , ??? atropine 0.1 mg/mL injection (abboject) - ADS Override Pull, , , , ??? dextrose (D5W) 5 % infusion - ADS Override Pull, , , , ??? EPINEPHrine (ADRENALIN) 0.1 mg/mL injection (abboject) - ADS Override Pull, , , , ??? fentaNYL (SUBLIMAZE) injection, , intravenous, Code/trauma/sedation med, Avinash Cobb MD, 25 mcg at 04/24/21 1214 ??? heparin (porcine) injection, , intravenous, Code/trauma/sedation med, Avinash Cobb MD, 1,000 Units at 04/24/21 1152 ??? midazolam (VERSED) 1 mg/mL injection - ADS Override Pull, , , , ??? midazolam (VERSED) injection, , intravenous, Code/trauma/sedation med, Avinash Cobb MD, 0.5mg at 04/24/21 1214 ??? nitroglycerin 100 mcg/mL injection, , , Code/trauma/sedation med, Avinash Cobb MD, 100 mcg at 04/24/21 1055 ??? nitroprusside (NIPRIDE) 25 mg/mL injection - ADS Override Pull, , , , ??? phenylephrine in sodium chloride 0.9 % 1 mg/10 mL (100 mcg/mL) injection - ADS Override Pull, , , , Relevant family history: Non-contributory Relevant review of systems: Non-contributory Allergies: Bee venom protein (honey bee) and Shellfish derived Relevant Labs: Lab Results Component Value Date CREATININE 0.76 04/24/2021 EGFR 106 04/24/2021 Directed physical examination: Alert/Oriented: Normal HEENT: Normal Chest/Lungs: Normal Heart: Normal Abdomen: Normal Mallampati: II (hard and soft palate, upper portion of tonsils anduvula visible) ASA Score: ASA 3 - Patient with moderate systemic disease with functional limitations documented in this encounter Nursing Notes Jelena King, RN - 04/25/2021 11:13 AM PST Pt discharged home in stable condition via POV driven by spouse with all belongings; PIV x 2 and tele removed. Discharge instructions reviewed included activity restriction, when to follow up with provider, and when to call 911; pt stated that they had no further questions. ~1130 Pt escorted to vehicle via wheelchair by staff without incident. Antonia Diaz - 04/24/2021 9:06 PM PST A&O x4. VSS. RA. Tele. NSR. PIV x2 SL. R & L groin site, CDI. No s/s of hematoma. Continentof B&B. Indep in room. No significant acute events overnight. Cares continues. Problem: Cardiovascular - Adult Goal: Maintains optimal cardiac output and hemodynamic stability Outcome: Progressing Problem: Cardiovascular - Adult Goal: Absence of cardiac dysrhythmias or at baseline Outcome: Progressing Problem: Skin/Tissue Integrity - Adult Goal: Incisions, wounds, or drain sites healing without S/S of infection Outcome: Progressing Problem: Skin/Tissue Integrity - Adult Goal: Skin integrity remains intact Outcome: Progressing Problem: Infection - Adult Goal: Absence of infection during hospitalization Outcome: Progressing Problem: Infection - Adult Goal: Absence of fever/infection during anticipated neutropenic period Outcome: Progressing Problem: Pain - Adult Goal: Verbalizes/displays adequate comfort level or baseline comfort level Outcome: Progressing Problem: Discharge Planning Goal: Discharge to home or other facility with appropriate resources Outcome: Progressing [place] - 04/24/2021 6:30 PM PST Pt arrived on floor ~1600 report received from Gavi GAXIOLA RN. Bedrest until 1655. Up to bathroom, drinking fluids, no complaints of pain. Pulses in both feet. No bleeding at R or L groin. Problem: Pain - Adult Goal: Verbalizes/displays adequate comfort level or baseline comfort level Outcome: Progressing Flowsheets (Taken 04/24/2021 1830) Addressed this shift: Verbalizes/displays adequate comfort level or baseline comfort level: Encourage patient to monitor pain and request assistance Assess pain using appropriate pain scale Administer analgesics based on type and severity of pain and evaluate response Note: Jonathan denies pain Identify possible barriers to meeting goals/advancing plan of care: bleeding End of Shift/ Care Plan Summary: Ruel Choudhury - 04/24/2021 10:30 AM PST See Samson charting for intraprocedural vital signs. Boo Andersen RN - 04/24/2021 10:00 AM PST Mr. Huddleston returned to [facility] from [employer] at 1255. He denies chest pressure, pain or any discomfort. He has remained on bedrest and has been following the groin access restrictions. Vascular incision sites on bilateral groins remains soft, nontender with no signs of hematoma. Patient had some icechips but not ready to eat or drink fluids at the moment. Patient educated on importance of increased fluidintake post contrast use in angiogram and indicated understanding. Patient's updated on procedure outcome and need for patient to be admitted overnight. Report called to Evelyn, and patient transferred to [facility] at 1555. Bedside check completed. documented in this encounter OR Notes Post-Procedure Note - Avinash Cobb MD - 04/24/2021 10:00 AM PST Special Imaging Postprocedure Note Jonathan Lowell Huddleston Physician: Avinash Cobb MD Senior Physician: None Diagnosis: The encounter diagnosis was Coronary artery disease due to lipid rich plaque. Procedure: SI LEFT HEART CATH Complications: None Stents/Grafts/Implant: yes; MORGAN to LAD Blood Product Administration: no If yes, see Blood Administration Record Estimated Blood Loss: minimal Anesthesia: no Specimens Removed: no 04/24/2021 12:19 PM documented in this encounter Plan of Treatment Upcoming Encounters Date Type Specialty Care Team Description 08/26/2021 Appointment Radiology Ben Leyva MD [address] [place], [place] [id number] (Wo rk) 09/09/2021 Office Visit Cardiology Ben Leyva MD [address] [place] [address] (Wo rk) Scheduled Referrals Name Type Priority Associated Order Schedule Diagnoses Ambulatory Referral to Outpatient Routine Coronary artery 1 Occurrences Cardiac Rehabilitation Referral disease due to sta rting lipid rich plaqu e 04/24/2021 until Cardiomyopathy, 10/23/2021 ischemic Health Maintenance Due Date Last Done Comments MMR Vaccines (1 of 1 - 1970 Standard series) Depression Screening 1981 (PHQ-2) Colorectal Cancer Screening 12/21/2019 (Colonoscopy) Colorectal Cancer Screening 12/21/2019 (FOBT) Colorectal Cancer Screening 12/21/2019 (Fecal DNA) Colorectal Cancer Screening 12/21/2019 (Flex Sig/CT Colonography) Colorectal Cancer Screening 12/21/2019 Combined Zoster Vaccines (1 of 2) 12/21/2019 COVID-19 Vaccine (2 - 09/27/2020 08/02/2020 Booster for Tena series) DTaP,Tdap,and Td Vaccines 03/05/2027 03/05/2017 (2 - Td or Tdap) HM Pneumococcal Combined 2034 03/05/2017 Age 0-64 (2 of 2 - PPSV23) Influenza Vaccine Completed 02/02/2021, 02/02/2021, 01/28/2020, Additional history exists HPV Vaccines Aged Out No longer eligib le based on patient 's age to complete this topic Hepatitis A Vaccines Aged Out No longer e ligible based on patient 's age to complete this topic Hepatitis B Vaccines Aged Out No longer e ligible based on patient 's age to complete this topic IPV Vaccines Aged Out No longer eligib le based on patient 's age to complete this topic documented as of this encounter Medical Devices Implanted Type Area Door Captain Device Identifier Shelf Exp iration Model / Date Serial / L ot Stent Xience Skypoint 3.00*23 - [id number] / Implanted: Qty: 1 on 04/24/2021 at [facility] / documented as of this encounter Procedures Procedure Name Priority Date/Time Associated Diagnosis Comme nts DISCHARGE PATIENT Routine 04/25/2021 10:06 AM PST SI STENT MORGAN - Routine 04/24/2021 1:09 PM Coronary artery Res ults for this CORONARY PST disease due to lipid procedu re are in rich plaque the results section. ECG 12-LEAD STAT 04/24/2021 1:07 PM Results for this PST procedure are i n the results section. COMPLETE BLOOD STAT 04/24/2021 8:53 AM Result s for this COUNT WITH DIFF PST procedure ar e in RESULT the results section. COMPLETE BLOOD STAT 04/24/2021 8:53 AM Result s for this COUNT WITH DIFF PST procedure ar e in the results section. BASIC METABOLIC STAT 04/24/2021 8:53 AM Resul ts for this PANEL PST procedure are i n the results section. TELEMETRY EXTERNAL 04/24/2021 Results f or this RESULTS procedure are i n the results section. documented in this encounter Results SI STENT MORGAN - CORONARY (04/24/2021 1:09 PM PST) Anatomical Region Laterality Modality N/A Catheterization/Inte rventional Lab Specimen (Source) Anatomical Collection Method Collection Time Re ceived Time Location / / Volume Laterality 04/24/2021 12:23 PM PST [facility] - 05/01/2021 2:25 PM PST DATE OF SERVICE: 04/24/2021 PROCEDURE: 1. ??Percutaneous intervention on the le ft anterior ?descending. 2. ??Instantaneous wave-free ratio of th e left ?anterior descending. 3. ??Left heart catheterization. 4. ??Percutaneous intervention on the ri ght coronary ?artery (attempted recanalization o f the right coronary ?artery chronic total occlusion). 5. ??Supervision for moderate sedation. PROCEDURAL DETAILS: Bilateral groin acce ss was obtained. ??A Voda guide was placed in the left saldivar ry and an AL 17 Persian guide was placed in the right cor onary artery. ??The patient had a borderline lesion in his m id RCA which was evaluated to be 70% by CTA. ??This was a ssessed with iFR. The iFR was 0.79, thereby indicating sherie t this lesion was physiologically significant. ??It was ba lloon dilated and then stented with a 3.0 x 23 mm stent de livered at 16 atmospheres with excellent angiographic results. ??Next we then started off with an intervention on the right coronary artery. ??We started off with a FineCros s catheter and a Fisher 50 wire. ??The FineCross catheter would not go through the area of total occlusion. ??This was then exchanged out for a Teleport catheter. ??The Teleport catheter crossed the area of total occlusion and multiple wir es including Fisher 50, Fisher 150, Fisher 200 and Miracle Bro s had to be used to get to the distal RCA. ??Simultaneous in jections were done from the left coronary catheter. ??Howev er, the catheter would not advance. ??We switched this ou t for a 1.0 balloon. That balloon tracked much better. ??We w ere able to cross the distal fibrous cap. ??However, the w bismark was somewhat intimal. ??We moved it back and tried to rewire and were able to get into the distal posterolater al. ??However, once again the balloon would not cross. ??At this point I thought perhaps proximal balloon dilatation migh t reduce the friction and allow a new balloon to trac k. ??Despite doing this, the balloon would not track and at this point the procedure had to be terminated. In summary, unsuccessful recanalization of the RCA ASSISTANT UNIT FORESTER. Successful stenting of the LAD. ??Recomm end dual antiplatelet therapy for 6 months post p rocedure. Ben Leyva MD [facility] SI PROCEDURES Performing Organization Address City/State/ZIP Code Phon e Number [facility] [address] [place] [address], U S ECG 12 lead- now if intervention performed (04/24/2021 1:07 PM PST) Component Value Ref Test Analysis Performed At [facility] Range Method Time Signature HR 75 bpm [facility] RR 796 ms [facility] RI 176 ms [facility] QRSD 101 ms [facility] QT 428 ms [facility] QTc 480 ms [facility] QRS 69 deg [facility] T 31 deg [facility] Impression - NORMAL ECG - [facility] Impression Sinus rhythm [facility] Impression Intraventricular [facility] conduction delay [facility] SYSTEM Impression No previous ECG [facility] available for LAB SYSTEM comparison Impression Poor quality data, [facility] interpretation may LAB SYSTEM be affected Specimen (Source) Anatomical Collection Method Collection Time Re ceived Time Location / / Volume Laterality 04/24/2021 1:07 PM [facility] Narrative This result has an attachment that is no t available. Avinash Cobb MD ECG ORDERABLES Performing Organization Address City/State/ZIP Code Phon e Number [facility] [address] [place] [address], (ABNORMAL) Complete blood count with diff (04/24/2021 8:53 AM [facility]) [facility] gist Method Time Signature WBC Auto 9.2 3.8 - 10.1 04/[facility] x10e3/uL 9:04 AM [facility] RBC 4.58 4.40 - 04/24/2021 [facility] 5.80 9:04 AM [facility] x10e6/uL Hemoglobin 15.5 13.8 - 04/24/2021 [facility] 17.2 g/dL 9:04 AM [facility] Hematocrit 44.1 41.0 - 04/24/2021 [facility] 50.0 % 9:04 AM [facility] MCV 96 81 - 100 04/24/2021 [facility] fL 9:04 AM [facility] MCH 33.8 27.0 - 04/24/2021 [facility] 35.0 pg 9:04 AM [facility] MCHC 35.1 32.0 - 04/24/2021 [facility] 37.0 g/dL 9:04 AM [facility] RDW 12.2 (L) 12.3 - 04/24/2021 [facility] 15.4 % 9:04 AM [facility] Platelets 230 150 - 400 04/24/2021 [facility] x10e3/uL 9:04 AM [facility] MPV 9.5 7.4 - 10.4 04/24/2021 [facility] fL 9:04 AM [facility] NRBC % 0 0 /100 04/24/2021 [facility] WBCs 9:04 AM [facility] Abs. NRBC 0.0 x10e3/uL 04/24/2021 [facility] 9:04 AM [facility] % Neutrophils 72 % 04/24/2021 [facility] 9:04 AM [facility] % Lymphocytes 16 % 04/24/2021 [facility] 9:04 AM [facility] % Monocytes 9 % 04/24/2021 [facility] 9:04 AM [facility] % Eosinophils 2 % 04/24/2021 [facility] 9:04 AM [facility] % Basophils 0 % 04/24/2021 [facility] 9:04 AM [facility] Abs. Neutrophils 6.6 1.6 - 6.9 04/24/2021 [facility] x10e[facility]/uL 9:04 AM [facility] Abs. Lymphocytes 1.5 1.1 - 4.8 04/24/2021 [facility] x10e3/uL 9:04 AM [facility] Abs. Monocytes 0.8 0.0 - 1.0 04/24/2021 [facility] x10e3/uL 9:04 AM [facility] Abs. Eosinophils 0.2 0.0 - 0.5 04/24/2021 [facility] x10e3/uL 9:04 AM [facility] Abs. Basophils 0.0 0.0 - 0.4 04/24/2021 [facility] x10e3/uL 9:04 AM [facility] Abs. Neutrophils 6,600.0 1,600.0-6, 04/24/2021 [facility] (Auto[facility] 900.0 /uL 9:04 AM [facility] Specimen Anatomical Collection Method / Collection Time Recei asiya Time (Source) Location / Volume Laterality Blood Venous blood / Venipuncture / 04/24/2021 8:53 021 Unknown Unknown AM [facility] 9:00 AM [facility] Avinash Cobb MD LAB BLOOD ORDERABLES Performing Organization Address City/State/ZIP Code Phon e Number [facility] [address] [place] [id number] (ABNORMAL) Basic metabolic panel (04/24/2021 8:53 AM [facility]) athologist Signature Sodium, 136 134 - 144 04/24/2021 [facility] Serum/Plasma mmol/L 9:20 AM [facility] Potassium, 3.5 3.5 - 5.2 04/24/2021 [facility] Serum/Plasma mmol/L 9:20 AM [facility] Chloride, 99 97 - 108 04/24/2021 [facility] Serum/Plasma mmol/L 9:20 AM [facility] CO2, 25 18 - 29 04/24/2021 [facility] Serum/Plasma mmol/L 9:20 AM [facility] Anion Gap, 12 (H) 3 - 11 04/24/2021 [facility] Serum/Plasma mmol/L 9:20 AM [facility] Urea Nitrogen, 18.0 6.0 - 24.0 04/24/2021 [facility] Serum/Plasma mg/dL 9:20 AM [facility] Creatinine, 0.76 0.76 - 04/24/2021 [facility] Serum/Plasma 1.27 mg/dL 9:20 AM [facility] Glucose, 178 (H) 65 - 99 04/24/2021 [facility] Serum/Plasma mg/dL 9:20 AM [facility] Calcium, 9.2 8.5 - 10.1 04/24/2021 [facility] Serum/Plasma mg/dL 9:20 AM [facility] eGFR, 106 >60 04/24/2021 [facility] Serum/Plasma (CKD-EPI) 9:20 AM [facility] (CKD-EPI) mL/min/1.7 3 m2 BUN/Creatinine 23.7 7.0 - 24.0 04/24/2021 [facility] Ratio, 9:20 AM [facility] Serum/Plasma Specimen Anatomical Collection Method / Collection Time Recei asiya Time (Source) Location / Volume Laterality Blood Venous blood / Venipuncture / 04/24/2021 8:53 021 Unknown Unknown AM [facility] 9:00 AM PST Avinash Cobb MD LAB BLOOD ORDERABLES Performing Organization Address City/State/ZIP Code Phon e Number [facility] [address] [phone] TELEMETRY EXTERNAL RESULTS (04/24/2021) Narrative 04/24/2021 This result has an attachment that is no t available. Ordered by an unspecified provider. Provider External [facility] LAWRENCE GONZALEZ documented in this encounter Visit Diagnoses Diagnosis Cardiomyopathy, ischemic - Primary Other specified forms of chronic ischemi c heart disease Coronary artery disease due to lipid noa h plaque documented in this encounter Administered Medications Inactive Administered Medications - up to 3 most recent administrations Medication Order MAR Action Action Date Dose Rate Site amLODIPine (NORVASC) tablet 5 mg Given 04/25/2021 9:42 AM PST 5 mg 5 mg, oral, Daily, First dose on Thu04/24/21 at 1300 aspirin chewable tablet 81 mg Given 04/25/2021 9:42 AM PST 81 mg 81 mg, oral, Daily, First dose on Estefany 04/25/21 at 0900, Postprocedure (SI) atorvastatin (LIPITOR) tablet 80 mg Given 04/24/2021 9:10 PM PST 80 mg 80 mg, oral, Nightly, First dose (after last modification) on Thu04/24/21 at 2100 atropine injection (abboject) 0.5-1 mg 0.5-1 mg, intravenous, Every 5 min PRN, bradycardia, s ymptomatic bradycardia, Starting on Thu04/24/21 at 1256, Postprocedure (SI), Repeat as directed. clopidogreL (PLAVIX) tablet 75 mg Given 04/25/2021 9:43 AM PST 75 mg 75 mg, oral, Daily, First dose on Estefany 04/25/21 at 0900, Postprocedure (SI) fentaNYL (SUBLIMAZE) injection Given 04/24/2021 12:14 PM PST 25 mcg intravenous, Code/trauma/sedation medication, Starting on Thu04/24/21 at 1037 Given 04/24/2021 12:02 PM PST 25 mcg Given 04/24/2021 11:48 AM PST 25 mcg flumazeniL (ROMAZICON) injection 0.2 mg 0.2 mg, intravenous, As needed, for susp ected benzodiazepine overdose, Starting on Thu04/24/21 at 1256, Postprocedure (SI), every 20 min prn for suspected benzodiazepine overdose gabapentin (NEURONTIN) capsule 100 mg Given 04/25/2021 9:42 AM PST 100 mg 100 mg, oral, 3 times daily, First dose on Thu04/24/21 at 1500 Given 04/24/2021 9:10 PM PST 100 mg Given 04/24/2021 4:42 PM PST 100 mg heparin (porcine) injection Given 04/24/2021 11:52 AM PST 1,000 Units intravenous, Code/trauma/sedation medication, Starting on Thu04/24/21 at 1045 Given 04/24/2021 11:33 AM PST 1,000 Units Given 04/24/2021 11:04 AM PST 3,000 Units iopamidoL (ISOVUE-370) 76 % injection Given 04/24/2021 12:32 PM PST 300 mL Code/trauma/sedation medication, Starting on Thu04/24/21 at 1232 metoprolol tartrate (LOPRESSOR) split Given 04/25/2021 9:43 AM PST 12.5 mg tablet 12.5 mg 12.5 mg, oral, 2 times daily, First dose (after last modification) on Thu04/24/21 at 2100 Given 04/24/2021 9:10 PM PST 12.5 mg midazolam (VERSED) injection Given 04/24/2021 12:14 PM PST 0.5 mg intravenous, Code/trauma/sedation medication, Starting on Thu04/24/21 at 1037 Given 04/24/2021 12:02 PM PST 0.5 mg Given 04/24/2021 11:48 AM PST 0.5 mg naloxone (NARCAN) injection 0.4 mg 0.4 mg, intravenous, As needed, opioid r eversal, respiratory depression, Starting on Thu04/24/21 at 1256, Postprocedure (SI) nitroglycerin 100 mcg/mL injection Given 04/24/2021 10:55 AM PST 100 mcg Code/trauma/sedation medication, Starting on Thu04/24/21 at 1055 sodium chloride (NS) 0.9 Continued from OR 04/24/2021 1:00 PM 100 mL/hr 100 mL/hr % infusion PST 100 mL/hr, intravenous, Continuous, Starting on Thu04/24/21 at 1300, For 4 hours, Postprocedure (SI), then saline lock until patient ready for discharge. documented in this encounter Active and Recently Administered Medications Times are shown in PST. Scheduled Medication Order 04/23/2021 04/24/2021 04/25/2021 amLODIPine (NORVASC) tablet 5 mg 1300 (N ot Given - Provider: Bren Byerley - Reason: Other) 0942 (Given - Provider: Jelena King RN) 5 mg, oral, Daily, First dose on Thu04/24/21 at 1300 aspirin chewable tablet 81 mg 09 (Given - Provider: Jelena King RN) 81 mg, oral, Daily, First dose on Estefany 04/25/21 at 0900, Postproc edure (SI) atorvastatin (LIPITOR) tablet 80 mg 2109 (Given - Provider: Crista Diaz) 80 mg, oral, Nightly, First dose (after last modification) on Thu04/24/21 at 2100 clopidogreL (PLAVIX) tablet 75 mg 942 (Given - Provider: Jelena King RN) 75 mg, oral, Daily, First dose on Estefany 04/25/21 at 0900, Postproc edure (SI) gabapentin (NEURONTIN) capsule 100 mg 16 (Given - Provider: Evelyn Perales)2109 (Given - Provider: Crista Diaz) 09 (Given - Provider: Jelena King RN) 100 mg, oral, 3 times daily, First dose on Thu04/24/21 at 1500 metoprolol tartrate (LOPRESSOR) split tablet 12.5 mg 2109 (Given - Provider: Crista Diaz) 942 (Given - Provider: Jelena King RN) 12.5 mg, oral, 2 times daily, First dose (after last modification) on Thu04/24/21 at 2100 Continuous Medication Order 04/23/2021 04/24/2021 04/25/2021 sodium chloride (NS) 0.9 % infusion () 1300 (Continued from OR - Provider: Gavi Andersen RN)1644 (Stopped - Provider: Evelyn Perales) 100 mL/hr, intravenous, at 100 mL/hr, Co ntinuous, Starting on Thu04/24/21 at 1300, For 4 hours, Postprocedure (SI), then saline lock until patient ready for discharge. PRN Medication Order 04/23/2021 04/24/2021 04/25/2021 atropine injection (abboject) 0.5-1 mg 0.5-1 mg, intravenous, Every 5 min PRN, bradycardia, symptomatic bradycardia, Starting on Thu04/24/21 at 1256, Postprocedure (SI), Repeat as directed. fentaNYL (SUBLIMAZE) injection (COMPLETED) 1037 (Given - Provider: Jaqueline Choudhury)1045 (Given - Provider: Jaqueline Choudhury)1051 (Given - Provider: Jaqueline Choudhury)1100 (Given - Provider: Jaqueline Choudhury)1130 (Given - Provider: Jaqueline Choudhury)1148 (Given - Provider: Jaqueline Choudhury) intravenous, Code/trauma/sedation medication, Starting on 04/24/21 at 1037 1202 (Given - Provider: Jaqueline Choudhury)1214 (Given - Provider: Jaqueline Choudhury) flumazeniL (ROMAZICON) injection 0.2 mg 0.2 mg, intravenous, As needed, for susp ected benzodiazepine overdose, Starting on Thu04/24/21 at 1256, Postprocedure (SI), every 20 min prn for suspected benzodiazepine overdose heparin (porcine) injection (COMPLETED) 1045 (Given - Provider: Jaqueline Choudhury)1104 (Given - Provider: Jaqueline Choudhury)1133 (Given - Provider: Jaqueline Choudhury)1152 (Given - Provider: Jaqueline Choudhury) intravenous, Code/trauma/sedation medication, Starting on 04/24/21 at 1045 iopamidoL (ISOVUE-370) 76 % injection (COMPLETED) 1232 (Given - Provider: Avinash Cobb MD) Code/trauma/sedation medication, Starting on Thu04/24/21 at 123 2 midazolam (VERSED) injection (COMPLETED) 1037 (Given - Provider: Jaqueline Choudhury)1044 (Given - Provider: Jaqueline Choudhury)1051 (Given - Provider: Jaqueline Choudhury)1101 (Given - Provider: Jaqueline Choudhury)1130 (Given - Provider: Jaqueline Choudhury)1148 (Given - Provider: Jaqueline Choudhury) intravenous, Code/trauma/sedation medication, Starting on 04/24/21 at 1037 1202 (Given - Provider: Jaqueline Choudhury)1214 (Given - Provider: Jaqueline Choudhury) naloxone (NARCAN) injection 0.4 mg 0.4 mg, intravenous, As needed, opioid r eversal, respiratory depression, Starting on Thu04/24/21 at 1256, Postprocedure (SI) nitroglycerin 100 mcg/mL injection (COMPLETED) 1055 (Given - Provider: Avinash Cobb MD) Code/trauma/sedation medication, Starting on Thu04/24/21 at 105 5 documented in this encounter Insurance Payer Benefit Plan / Subscriber ID Effective Phone Address T ype Group Dates [facility] [id number] 2020-Prese [phone] [address] [facility] [address] [facility] [address] documented as of this encounter Advance Directives Documents on File Type Date Recorded Patient Lead Care Manager Explanati on Advance Directives and Living Will Latest Code Status on File Code Status Date Activated Date Inactivated Comments Full Code 04/24/2021 12:56 PM 04/25/2021 2:18 PM Full Code 02/11/2021 11:18 AM 02/12/2021 2:43 AM Care Teams [employer] Integration Specialist Relationship Specialty Start Date End Date Winifred Way MD PCP - General Family Medicine 01/16/21 [address] [place] [address] documented as of this encounter
== END 2021-03-01 15:34 | disposition home or self-care (01) ==
PROVIDERS: Family Provider Student in an Organized Health Care Education/Training Program; PCP Student in an Organized Health Care Education/Training Program; Referring Provider Student in an Organized Health Care Education/Training Program; Visit Provider Student in an Organized Health Care Education/Training Program
PROC: 0DJD8ZZ Inspection of Lower Intestinal Tract, Via Natural or Artificial Opening Endoscopic (ICD-10-PCS; CPT 45378; principal; 2021-03-01 14:30)
DX: Z12.11 Encounter for screening for malignant neoplasm of colon (principal)
CPT/HCPCS: 45378; J2250; J3010

== ENCOUNTER → 2021-03-30 08:42 | Outpatient (CLI) | payer OTHER, SELFPAY ==
[2021-03-30 09:35] LABS: Hemoglobin A1C% w Est Avg Glu 6.1 % (4.0-6.0)
== END ==
PROVIDERS: Family Provider Student in an Organized Health Care Education/Training Program; PCP Student in an Organized Health Care Education/Training Program; Referring Provider Student in an Organized Health Care Education/Training Program; Visit Provider Student in an Organized Health Care Education/Training Program
DX: E11.9 Type 2 diabetes mellitus without complications (principal)
CPT/HCPCS: 36415; 83036

== ENCOUNTER → 2021-12-21 08:10 | Outpatient (CLI) | payer OTHER, SELFPAY ==
[2021-12-21 09:47] LABS: Hemoglobin A1C% w Est Avg Glu 6.6 % (4.0-6.0)
== END ==
PROVIDERS: Family Provider Student in an Organized Health Care Education/Training Program; PCP Family Medicine; Referring Provider Family Medicine; Visit Provider Family Medicine
DX: E11.42 Type 2 diabetes mellitus with diabetic polyneuropathy (principal)
CPT/HCPCS: 36415; 83036

== ENCOUNTER → 2022-02-11 13:55 | Outpatient (CLI) | payer OTHER, SELFPAY ==
--- NOTE | 2022-02-11 14:18 | DI.ECHO.S_ITS ---
Interpretation Summary There is mild concentric left ventricular hypertrophy. The ejection fraction is estimated to be 50-55%. Diastolic parameters suggest probable normal left ventricular diastolic function and normal filling pressures. There is hypokinesis of the basal to mid inferior wall. The right ventricle is normal in size and function. No significant valvular abnormalities. Unable to estimate PASP. Compared to the prior study dated 09/05/2021, no significant change. Procedure: A two-dimensional transthoracic echocardiogram with color flow and Doppler was performed. The study quality was technically adequate. Comparison is made with the echocardiogram of 09/05/2021. The patient was in sinus rhythm with heart rates between 85-95 bpm during the exam. Left Ventricle: The left ventricle is normal in size. There is mild concentric left ventricular hypertrophy. The ejection fraction is estimated to be 50-55%. There is hypokinesis of the basal to mid inferior wall. Diastolic parameters suggest probable normal left ventricular diastolic function and normal filling pressures. Right Ventricle: The right ventricle is normal in size and function. Atria: The left atrial size is normal. Right atrial size is normal. There is no Doppler evidence for an interatrial shunt. Mitral Valve: The mitral valve is normal in structure and function. There is mild mitral annular calcification. There is no mitral regurgitation noted. Aortic Valve: The aortic valve is trileaflet. The aortic valve opens well. There is no aortic valve stenosis. No aortic regurgitation is present. Tricuspid Valve: The tricuspid valve is normal in structure and function. There is trace tricuspid regurgitation. Pulmonary artery pressures cannot be estimated because of the lack of a measurable TR jet velocity but the IVC suggests a CVP of around 3 mmHg. Pulmonic Valve: The pulmonic valve leaflets are thin and pliable; valve motion is normal. There is no pulmonic valvular regurgitation. Great Vessels: The aortic root is normal size. The dimensions of the ascending aorta are normal. The IVC is of normal diameter and collapses greater than 50% with a sniff. This suggests a low right atrial pressure of 3 mm Hg. Pericardium/ Pleura There is no pericardial effusion. There is no pleural effusion. MMode/2D Measurements & Calculations LVIDd: 5.7 cm LVOT diam: 2.2 cm LVIDs: 4.2 cm Ao root diam: 3.6 cm FS: 26.5 % asc Aorta Diam: 2.9 cm IVSd: 0.86 cm Ao Arch Diam (Prox Trans): 2.8 cm LVPWd: 1.1 cm LV servin. diameter/BSA (cm/m^2): 2.5 LV sys. diameter/BSA (cm/m^2): 1.9 LA A2 area: 18.3 cm2 RA long axis: 5.9 cm LA A4 area: 23.6 cm2 RA area: 21.0 cm2 LA length (vol): 6.2 cm RA vol: 64.1 ml LA vol: 59.3 ml RA : 28.7 ml/m2 LA vol index: 26.6 ml/m2 IVC diam: 0.89 cm RVD1 (basal): 3.3 cm TAPSE: 1.8 cm Doppler Measurements & Calculations Ao V2 max: 137.3 cm/sec LVOT Max Franklin: 101.9 cm/sec Ao V2 mean: 97.3 cm/sec LV V1 max P.2 mmHg Ao max P.5 mmHg LV V1 VTI: 20.2 cm Ao mean P.1 mmHg ANASTASIA(I,D): 3.2 cm2 Ao V2 VTI: 24.4 cm ANASTASIA(V,D): 2.9 cm2 sev ratio: 0.83 ANASTASIA indexed to BSA (cm^2/m^2): 1.4 MV E max franklin: 69.7 cm/sec PA V2 max: 113.6 cm/sec MV A max franklin: 89.6 cm/sec PA V2 mean: 78.2 cm/sec MV E/A: 0.78 PA mean P.8 mmHg Med Peak E' Franklin: 5.9 cm/sec PA pr(Accel): 46.5 mmHg E/E' med: 11.8 Lat Peak E' Franklin: 9.1 cm/sec E/E' lat: 7.7 E/e' average: 9.7 MV dec time: 0.22 sec SV(LVOT): 78.6 ml Reading Physician:05:38 PM
== END ==
PROVIDERS: Family Provider Student in an Organized Health Care Education/Training Program; PCP Family Medicine; Referring Provider Internal Medicine Cardiovascular Disease; Visit Provider Internal Medicine Cardiovascular Disease
DX: I34.81 Nonrheumatic mitral (valve) annulus calcification (principal); I42.9 Cardiomyopathy, unspecified
CPT/HCPCS: 93306

== ENCOUNTER → 2022-04-12 08:34 | Outpatient (CLI) | payer OTHER, SELFPAY ==
[2022-04-12 10:40] LABS: Hemoglobin A1C% w Est Avg Glu 7.2 % (4.0-6.0)
== END ==
PROVIDERS: Family Provider Student in an Organized Health Care Education/Training Program; PCP Family Medicine; Referring Provider Family Medicine; Visit Provider Family Medicine
DX: E11.42 Type 2 diabetes mellitus with diabetic polyneuropathy (principal)
CPT/HCPCS: 36415; 83036

== ENCOUNTER → 2022-07-19 08:55 | Outpatient (CLI) | payer OTHER, SELFPAY ==
[2022-07-19 09:52] LABS: Alanine Aminotransferase 47 IU/L (<50); Albumin 4.4 g/dL (3.5-5.0); Albumin Globulin Ratio 1.7 (1.0-2.8); Alkaline Phosphatase 98 U/L (38-126); Aspartate Aminotransferase 29 IU/L (17-59); Bilirubin Total 0.7 mg/dL (0.2-1.3); Blood Urea Nitrogen 13 mg/dL (9-20); Calcium 9.4 mg/dL (8.4-10.2); Carbon Dioxide 31 mmol/L (22-32); Chloride 100 mmol/L (98-107); Cholesterol 134 mg/dL (140-199); Estimated Glomerular Filt Rate > 60 mL/min (>60); Globulin 2.6 g/dL (1.7-4.1); Glucose 123 mg/dL (70-100); HDL Cholesterol 48 mg/dL (40-60); HEMOLYSIS < 15 (0-50); LDL Cholesterol Calculated 72 mg/dL (<100); Potassium 4.2 mmol/L (3.4-5.1); Sodium 138 mmol/L (137-145); Triglycerides 71 mg/dL (35-150)
[2022-07-21 01:08] LABS: Labcorp Hemoglobin (Hb) A1c 6.1 % (4.8-5.6)
== END ==
PROVIDERS: Family Provider Student in an Organized Health Care Education/Training Program; PCP Family Medicine; Referring Provider Family Medicine; Visit Provider Family Medicine
DX: E11.42 Type 2 diabetes mellitus with diabetic polyneuropathy (principal); E78.5 Hyperlipidemia, unspecified; I25.10 Atherosclerotic heart disease of native coronary artery without angina pectoris; I10 Essential (primary) hypertension; E66.9 Obesity, unspecified
CPT/HCPCS: 36415; 80053; 80061; 83036

== ENCOUNTER → 2023-01-10 08:43 | Outpatient (CLI) | payer OTHER, SELFPAY ==
[2023-01-10 09:17] LABS: Hemoglobin A1C% w Est Avg Glu 5.7 % (4.0-6.0)
[2023-01-10 09:37] LABS: Alanine Aminotransferase 51 IU/L (<50); Albumin 4.4 g/dL (3.5-5.0); Albumin Globulin Ratio 1.6 (1.0-2.8); Alkaline Phosphatase 109 U/L (38-126); Aspartate Aminotransferase 31 IU/L (17-59); BUN Creatinine Ratio 14.7 (6-22); Bilirubin Total 0.8 mg/dL (0.2-1.3); Blood Urea Nitrogen 10 mg/dL (9-20); Carbon Dioxide 26 mmol/L (22-32); Chloride 100 mmol/L (98-107); Cholesterol 126 mg/dL (140-199); Estimated Glomerular Filt Rate > 60 mL/min (>60); Globulin 2.7 g/dL (1.7-4.1); Glucose 116 mg/dL (70-100); HDL Cholesterol 50 mg/dL (40-60); HEMOLYSIS < 15 (0-50); LDL Cholesterol Calculated 60 mg/dL (<100); Potassium 4.2 mmol/L (3.4-5.1); Sodium 137 mmol/L (137-145); Total Protein 7.1 g/dL (6.3-8.2); Triglycerides 80 mg/dL (35-150)
[2023-01-10 09:43] LABS: Microalbumi Creatinin Ratio Ur 20.3 ug/mg CR (<30); Microalbumin Urine Random 2.5 mg/dL (0-1.6)
== END ==
PROVIDERS: Family Provider Student in an Organized Health Care Education/Training Program; PCP Family Medicine; Referring Provider Family Medicine; Visit Provider Family Medicine
DX: E11.42 Type 2 diabetes mellitus with diabetic polyneuropathy (principal)
CPT/HCPCS: 36415; 80053; 80061; 82043; 82570; 83036

== ENCOUNTER → 2023-04-18 08:44 | Outpatient (CLI) | payer OTHER, SELFPAY ==
[2023-04-18 10:22] LABS: Creatinine Urine Random 108.9 mg/dL
[2023-04-18 10:24] LABS: Hemoglobin A1C% w Est Avg Glu 5.9 % (4.0-6.0)
[2023-04-18 10:26] LABS: Microalbumin Urine Random 2.4 mg/dL (0-1.6)
[2023-04-18 11:03] LABS: Alanine Aminotransferase 52 IU/L (<50); Albumin 4.6 g/dL (3.5-5.0); Albumin Globulin Ratio 1.7 (1.0-2.8); Alkaline Phosphatase 101 U/L (38-126); Aspartate Aminotransferase 36 IU/L (17-59); BUN Creatinine Ratio 19.7 (6-22); Bilirubin Total 1.1 mg/dL (0.2-1.3); Blood Urea Nitrogen 14 mg/dL (9-20); Calcium 9.9 mg/dL (8.4-10.2); Carbon Dioxide 29 mmol/L (22-32); Chloride 103 mmol/L (98-107); Cholesterol 122 mg/dL (140-199); Estimated Glomerular Filt Rate > 60 mL/min (>60); Globulin 2.7 g/dL (1.7-4.1); Glucose 146 mg/dL (70-100); HDL Cholesterol 40 mg/dL (40-60); HEMOLYSIS < 15 (0-50); LDL Cholesterol Calculated 58 mg/dL (<100); Potassium 3.7 mmol/L (3.4-5.1); Sodium 140 mmol/L (137-145); Total Protein 7.3 g/dL (6.3-8.2); Triglycerides 121 mg/dL (35-150)
== END ==
PROVIDERS: Family Provider Student in an Organized Health Care Education/Training Program; PCP Family Medicine; Referring Provider Family Medicine; Visit Provider Family Medicine
DX: E11.42 Type 2 diabetes mellitus with diabetic polyneuropathy (principal)
CPT/HCPCS: 36415; 80053; 80061; 82043; 82570; 83036

== ENCOUNTER → 2023-07-11 08:39 | Outpatient (CLI) | payer OTHER, SELFPAY ==
[2023-07-11 11:33] LABS: Hemoglobin A1C% w Est Avg Glu 5.7 % (4.0-6.0)
== END ==
LOC: LAB 08:42
PROVIDERS: Family Provider Student in an Organized Health Care Education/Training Program; PCP Family Medicine; Referring Provider Family Medicine; Visit Provider Family Medicine
DX: E11.42 Type 2 diabetes mellitus with diabetic polyneuropathy (principal)
CPT/HCPCS: 36415; 83036

== ENCOUNTER → 2023-08-21 09:30 | Outpatient (CLI) | payer OTHER, SELFPAY ==
--- NOTE | 2023-08-21 09:33 | DI.RAD.S_ITS ---
PROCEDURE: XR ANKLE RT MIN 3V INDICATIONS: Fell, L knee tender at patella, R lateral ankle pain TECHNIQUE: 3 views of the ankle were acquired. COMPARISON: None. FINDINGS: Bones: No fractures or dislocations. Ankle mortise is normally aligned. No suspicious bony lesions. Retrocalcaneal spurring. Soft tissues: Small tibiotalar joint effusion. Achilles tendon appears normal. Lateral malleolar soft tissue swelling. IMPRESSION: 1. Lateral malleolar soft tissue swelling; otherwise no acute displaced fracture. No osseous lesion. If clinical suspicion and/orsymptoms persist, further assessment with repeat plainfilms, or advanced imaging (e.g., CT, MRI, or bone scan) may be helpful for further assessment. 2. Small tibiotalar joint effusion. Dictated by: Sandip Escudero [facility] Interpreted: Chen Alves MD on 08/21/2023 at 10:20 Transcribed by: JOHNNIE on 08/21/2023 at 10:22 Approved by: Chen Alves M.D. on 08/21/2023 at 17:29
--- NOTE | 2023-08-21 09:33 | DI.RAD.S_ITS ---
PROCEDURE: XR KNEE LT 3V INDICATIONS: Fell, L knee tender at patella, R lateral ankle pain TECHNIQUE: 3 views of the knee were acquired. COMPARISON: [facility], CR, XR KNEE RT 3V, 01/21/2020, 9:05. FINDINGS: Bones: No fractures or dislocations. No suspicious bony lesions. Mild tricompartmental knee joint space narrowing with minimal periarticular osteophyte formation. Soft tissues: Small joint effusion. No suspicious soft tissue calcifications. IMPRESSION: No acute fracture. No osseous lesion. If clinical suspicion and/orsymptoms persist, further assessment with repeat plainfilms, or advanced imaging (e.g., CT, MRI, or bone scan) may be helpful for further assessment. Dictated by: Sandip DORANTES Interpreted: Chen Alves MD on 08/21/2023 at 10:22 Transcribed by: JOHNNIE on 08/21/2023 at 10:23 Approved by: Chen Alves M.D. on 08/21/2023 at 17:29
== END ==
LOC: RAD 09:32
PROVIDERS: Family Provider Student in an Organized Health Care Education/Training Program; PCP Family Medicine; Referring Provider Nurse Practitioner Family; Visit Provider Nurse Practitioner Family
DX: M25.471 Effusion, right ankle (principal); M25.462 Effusion, left knee; M25.562 Pain in left knee; M25.571 Pain in right ankle and joints of right foot; M79.89 Other specified soft tissue disorders
CPT/HCPCS: 73562; 73610

== ENCOUNTER → 2024-01-15 13:31 | Outpatient (CLI) | payer OTHER, SELFPAY ==
[2024-01-15 14:35] LABS: Hemoglobin A1C% w Est Avg Glu 5.3 % (4.0-6.0)
== END ==
PROVIDERS: Family Provider Student in an Organized Health Care Education/Training Program; PCP Family Medicine; Referring Provider Family Medicine; Visit Provider Family Medicine
DX: E11.42 Type 2 diabetes mellitus with diabetic polyneuropathy (principal)
CPT/HCPCS: 36415; 83036

== ENCOUNTER → 2024-04-09 08:36 | Outpatient (CLI) | payer OTHER, SELFPAY ==
[2024-04-09 09:17] LABS: Add Manual Diff / Slide Review NO; Basophils Absolute Auto 0 /uL (0-100); Basophils Percent Auto 0.4 % (0-2); Eosinophils Absolute Auto 200 /uL (0-450); Eosinophils Percent Auto 1.4 % (2-4); Hematocrit 46.3 % (41-53); Hemoglobin 16.2 g/dL (13.5-17.5); Lymphocytes Absolute Auto 1000 /uL (1100-4500); Lymphocytes Percent Auto 9.4 % (25-40); Mean Corpuscular HGB Conc 35.1 % (30-36); Mean Corpuscular Hemoglobin 34.5 PG (26-34); Mean Corpuscular Volume 98.3 fL (80-100); Monocytes Absolute Auto 600 /uL (0-900); Monocytes Percent Auto 5.6 % (3-14); Neutrophils Absolute Auto 9200 /uL (1500-7000); Neutrophils Percent Auto 83.2 % (50-75); Platelet Count 232 X10^3/uL (150-400); Red Blood Cell Count 4.71 X10^6/uL (4.5-5.9); Red Cell Distribution Width 13.2 % (11.6-14.8)
[2024-04-09 09:24] LABS: Hemoglobin A1C% w Est Avg Glu 5.6 % (4.0-6.0)
[2024-04-09 09:33] LABS: Alanine Aminotransferase 37 IU/L (<50); Albumin 4.7 g/dL (3.5-5.0); Alkaline Phosphatase 104 U/L (38-126); Aspartate Aminotransferase 35 IU/L (17-59); BUN Creatinine Ratio 17.1 (6-22); Bilirubin Total 0.9 mg/dL (0.2-1.3); Blood Urea Nitrogen 13 mg/dL (9-20); Calcium 9.6 mg/dL (8.4-10.2); Carbon Dioxide 29 mmol/L (22-32); Chloride 100 mmol/L (98-107); Cholesterol 131 mg/dL (140-199); Estimated Glomerular Filt Rate > 60 mL/min (>60); Globulin 2.3 g/dL (1.7-4.1); Glucose 125 mg/dL (70-100); HDL Cholesterol 52 mg/dL (40-60); HEMOLYSIS < 15 (0-50); LDL Cholesterol Calculated 52 mg/dL (<100); Magnesium 1.7 mg/dL (1.6-2.3); Potassium 3.7 mmol/L (3.4-5.1); Sodium 138 mmol/L (137-145); Triglycerides 134 mg/dL (35-150)
[2024-04-09 10:01] LABS: TSH w/ Reflex to FT4 0.33 uIU/mL (0.47-4.68)
[2024-04-09 10:25] LABS: Free T4, Direct Thyroxine 1.05 ng/dL (0.78-2.19)
== END ==
PROVIDERS: Family Provider Student in an Organized Health Care Education/Training Program; PCP Family Medicine; Referring Provider Internal Medicine Cardiovascular Disease; Visit Provider Internal Medicine Cardiovascular Disease
DX: I25.10 Atherosclerotic heart disease of native coronary artery without angina pectoris (principal); I10 Essential (primary) hypertension; E78.5 Hyperlipidemia, unspecified; E11.9 Type 2 diabetes mellitus without complications
CPT/HCPCS: 36415; 80053; 80061; 83036; 83735; 84439; 84443; 85025

== ENCOUNTER → 2024-07-16 08:45 | Outpatient (CLI) | payer OTHER, SELFPAY ==
[2024-07-16 11:57] LABS: Hemoglobin A1C% w Est Avg Glu 5.5 % (4.0-6.0)
== END ==
PROVIDERS: Family Provider Student in an Organized Health Care Education/Training Program; PCP Family Medicine; Referring Provider Family Medicine; Visit Provider Family Medicine
DX: E11.42 Type 2 diabetes mellitus with diabetic polyneuropathy (principal); E11.65 Type 2 diabetes mellitus with hyperglycemia
CPT/HCPCS: 36415; 83036

== ENCOUNTER → 2024-11-22 13:44 | Outpatient (CLI) | payer OTHER, SELFPAY ==
--- NOTE | 2024-11-22 13:46 | DI.RAD.S_ITS ---
PROCEDURE: XR ELBOW RT MIN 3V INDICATIONS: Pain in right elbow TECHNIQUE: 3 views of the elbow were acquired. COMPARISON: None. FINDINGS: Bones: No fractures or dislocations. No suspicious bony lesions. Soft tissues: No elbow joint effusion. No suspicious soft tissue calcifications. IMPRESSION: No acute bony abnormality or significant joint effusion. Dictated by: Joe English M.D. on 11/24/2024 at 6:04 Approved by: Joe English M.D. on 11/24/2024 at 6:05
== END ==
PROVIDERS: Family Provider Student in an Organized Health Care Education/Training Program; PCP Family Medicine; Referring Provider Family Medicine; Visit Provider Family Medicine
DX: M25.521 Pain in right elbow (principal)
CPT/HCPCS: 73080

== ENCOUNTER → 2025-01-07 08:05 | Outpatient (CLI) | payer OTHER, SELFPAY ==
[2025-01-07 09:05] LABS: Hematocrit 46.9 % (41-53); Hemoglobin 16.6 g/dL (13.5-17.5); Mean Corpuscular HGB Conc 35.3 % (30-36); Mean Corpuscular Hemoglobin 34.2 PG (26-34); Mean Corpuscular Volume 96.8 fL (80-100); Platelet Count 253 X10^3/uL (150-400)
[2025-01-07 09:19] LABS: Alanine Aminotransferase 49 IU/L (<50); Albumin 4.8 g/dL (3.5-5.0); Albumin Globulin Ratio 1.9 (1.0-2.8); Alkaline Phosphatase 86 U/L (38-126); Blood Urea Nitrogen 13 mg/dL (9-20); Calcium 9.9 mg/dL (8.4-10.2); Carbon Dioxide 27 mmol/L (22-32); Chloride 100 mmol/L (98-107); Cholesterol 128 mg/dL (140-199); Estimated Glomerular Filt Rate > 60 mL/min (>60); Globulin 2.5 g/dL (1.7-4.1); Glucose 114 mg/dL (70-99); HDL Cholesterol 55 mg/dL (40-60); HEMOLYSIS 18 (0-50); Potassium 3.8 mmol/L (3.4-5.1); Sodium 137 mmol/L (137-145); Total Protein 7.3 g/dL (6.3-8.2); Triglycerides 100 mg/dL (35-150)
[2025-01-07 09:36] LABS: Free T4, Direct Thyroxine 1.04 ng/dL (0.78-2.19)
[2025-01-07 09:50] LABS: Thyroid Stimulating Hormone 0.345 uIU/mL (0.47-4.68)
== END ==
PROVIDERS: Family Provider Student in an Organized Health Care Education/Training Program; PCP Family Medicine; Referring Provider Family Medicine; Visit Provider Family Medicine
DX: Z00.00 Encounter for general adult medical examination without abnormal findings (principal); Z13.0 Encounter for screening for diseases of the blood and blood-forming organs and certain disorders involving the immune mechanism; Z13.21 Encounter for screening for nutritional disorder; Z13.228 Encounter for screening for other metabolic disorders; Z13.29 Encounter for screening for other suspected endocrine disorder
CPT/HCPCS: 36415; 80053; 80061; 84439; 84443; 85027

== ENCOUNTER → 2025-04-15 08:39 | Outpatient (CLI) | payer OTHER, SELFPAY ==
[2025-04-15 10:41] LABS: Hemoglobin A1C% w Est Avg Glu 5.9 % (4.0-6.0)
== END ==
PROVIDERS: Family Provider Student in an Organized Health Care Education/Training Program; PCP Family Medicine; Referring Provider Family Medicine; Visit Provider Family Medicine
DX: E11.65 Type 2 diabetes mellitus with hyperglycemia (principal)
CPT/HCPCS: 36415; 83036